=== PATIENT | female | born 1995 | race Hispanic/Latino ===

== ENCOUNTER 2022-09-10 09:50 | Outpatient (CLI) | payer BC | END 2022-09-10 09:51 | disposition home or self-care (01) | LOC: BICRAD 09:50 | PROVIDERS: ATTEND Nurse Practitioner Family | DX: M79.645 Pain in left finger(s) (principal) ==

== ENCOUNTER 2022-09-30 13:45 | Outpatient (CLI) | payer BC | END 2022-09-30 13:46 | disposition home or self-care (01) | LOC: SCSMRI 13:45 | PROVIDERS: ATTEND Orthopaedic Surgery Hand Surgery | DX: D16.12 Benign neoplasm of short bones of left upper limb (principal); M89.9 Disorder of bone, unspecified ==

== ENCOUNTER 2022-11-01 12:36 | Day surgery (SDC) | payer OTHER, BC ==
[2022-10-28 14:45] VITALS: BMI 22.3
[2022-11-01] MEDS ORDERED: fentaNYL PF 100 MCG/2 ML SYRINGE ONE (13:08)
[2022-11-01] MEDS ORDERED: Bupivacaine PF 0.5% 30 ML VIAL ONE (13:20)
[2022-11-01] MEDS ORDERED: Betamet Acet/Betamet Na Ph 30 MG/5 ML VIAL ONE (13:20)
[2022-11-01] MEDS ORDERED: Thrombin 5000 UNITS/5 ML VIAL ONE (13:21)
[2022-11-01] MEDS ORDERED: Bacitracin Zinc Ointment 30 gm TUBE ONE (13:21)
[2022-11-01] MEDS ORDERED: CEFAZOLIN 2 GM VIAL ONE (13:39)
[2022-11-01] MEDS ORDERED: Sodium Chloride 0.9% 100 ML ONE (13:39)
[2022-11-01] MEDS ORDERED: Midazolam HCl 2 mg/2 ml Vial ONE (13:40)
[2022-11-01 13:46] LABS: #Basophils 0.1 thou/uL (0.0-0.2); #Eosinphils 0.1 thou/uL (0.0-0.7); #Lymphocytes 2.3 thou/uL (1.20-3.40); #Monocytes 0.6 thou/uL (0.11-0.59); #Neutrophils 6.7 thou/uL (1.40-6.50); %Basophils 0.7 % (0.0-1.0); %Eosinophils 0.7 % (0.0-10.0); %Lymphocytes 23.8 % (21.0-51.0); %Monocytes 6.3 % (0.0-10.0); %Neutrophils 68.4 % (42.0-75.0); Hemoglobin 10.6 g/dL (12.0-16.0); Mean Corpuscular HGB CONC 29.8 g/dL (32.0-36.0); Mean Corpuscular Hemoglobin 26.6 pg (27.0-31.0); Mean Corpuscular Volume 89.1 fl (78.0-98.0); Platelet Count 314 10x3/uL (130-400); RBC Distribution Width 14.1 % (11.5-14.5); Red Blood Cell (RBC) Count 3.99 mill/uL (4.20-5.40); White Blood Cell (WBC) Count 9.8 10x3/uL (4.8-10.8)
[2022-11-01 14:02] LABS: BHCG - Serum Negative (NEGATIVE); Pregs Control Background? CLEAR/WHITE (CLR/WHITE); Pregs Control Bar Appear? YES (CONTROL BAR)
[2022-11-01] MEDS ORDERED: Ondansetron PF 4 MG/2 ML Vial ONE (14:39)
[2022-11-01] MEDS ORDERED: ePHEDrine 50 MG/ML VIAL ONE (14:39)
[2022-11-01] MEDS ORDERED: Ketorolac Tromethamine 30 MG/ML VIAL ONE ×2 (14:39→16:58)
[2022-11-01] MEDS ORDERED: Lidocaine 1% PF 5 ML VIAL ONE (14:39)
[2022-11-01] MEDS ORDERED: PROPOFOL 200 MG/20 ML VIAL ONE (14:39)
[2022-11-01] MEDS ORDERED: Dexamethasone 20 MG/5 ML VIAL ONE (14:39)
[2022-11-01] MEDS ORDERED: HYDROcodone/Acetaminophen 5/325 mg Tablet ONE (16:49)
== END 2022-11-01 18:00 | disposition home or self-care (01) ==
LOC: SDC 12:36
PROVIDERS: ATTEND Orthopaedic Surgery Hand Surgery
PROC: 0PBV0ZX Excision of Left Finger Phalanx, Open Approach, Diagnostic (ICD-10-PCS; principal; 2022-11-01)
PROC: 0PUV07Z Supplement Left Finger Phalanx with Autologous Tissue Substitute, Open Approach (ICD-10-PCS; principal; 2022-11-01)
DX: D16.12 Benign neoplasm of short bones of left upper limb (principal); S62.647A Nondisplaced fracture of proximal phalanx of left little finger, initial encounter for closed fracture; X50.0XXA Overexertion from strenuous movement or load, initial encounter; Y92.813 Airplane as the place of occurrence of the external cause
CPT/HCPCS: 84703; 85025; 88307; 88311; J0702; J1100; J1885; J2250; J2405; J2704; J3490; S0020